=== PATIENT | female | born 1985 | race Caucasian/White ===

== ENCOUNTER 2017-07-28 12:19 | Emergency (ER) | payer BC ==
--- NOTE | 2017-07-28 12:27 | ED ---
Skin Complaint - HPI Summary HPI Summary: 32 YEAR OLD FEMALE PRESENTS WITH MULTIPLE CAT BITES AND SCRATCHES ON BOTH ARMS. - History of Current Complaint Time Seen by Provider: 07/28/17 12:27 Stated Complaint: BILATERAL HAND/ARM CAT BITE/SCRATCH Hx Obtained From: Patient Hx Last Menstrual Period: 09/06/14 Onset/Duration: Started Hours Ago Skin Exposure Onset/Duration: Hours Ago Timing: Constant Onset Severity: Moderate - Allergy/Home Medications Allergies/Adverse Reactions: Allergies Allergy/AdvReac Type Severity Reaction Status Date / Time Sertraline [From Zoloft] Allergy Severe Rash Verified 07/28/17 12:28 Sulfa Drugs Allergy Severe Rash Verified 07/28/17 12:28 PMH/Surg Hx/FS Hx/Imm Hx Endocrine/Hematology History: Denies: Hx Anticoagulant Therapy, Hx Diabetes, Hx Thyroid Disease Cardiovascular History: Denies: Hx Hypertension, Hx Pacemaker/ICD Respiratory History: Denies: Hx Asthma, Hx Chronic Obstructive Pulmonary Disease (COPD) GI History: Reports: Hx Ulcer, Other GI Disorders - Hx of ulcers 2002, treated medically, resolved History: Denies: Hx Renal Disease Sensory History: Denies: Hx Hearing Aid Neurological History: Reports: Other Neuro Impairments/Disorders - Hx of sciatica Denies: Hx Dementia, Hx Seizures Psychiatric History: Reports: Hx Panic Disorder - Not r/t MRI, pt has had MRI without difficulty Denies: Hx Substance Abuse - Surgical History Surgery Procedure, Year, and Place: L knee laparoscopic surgery 2004, navel surgery 1982 Infectious Disease History: Denies: Hx Clostridium Difficile, Hx Hepatitis, Hx Human Immunodeficiency Virus (HIV), Hx of Known/Suspected MRSA, Hx Shingles, Hx Tuberculosis, Hx Known/ Suspected VRE, Hx Known/Suspected VRSA, History Other Infectious Disease - Social History Alcohol Use: None Substance Use Type: Reports: None Smoking Status (MU): Never Smoked Tobacco Have You Smoked in the Last Year: No Review of Systems Constitutional: Negative Eyes: Negative ENT: Negative Cardiovascular: Negative Respiratory: Negative Gastrointestinal: Negative Genitourinary: Negative Musculoskeletal: Negative Positive: Other - CAT SCRATCH/BITES ON BOTH ARMS All Other Systems Reviewed And Are Negative: Yes Physical Exam Triage Information Reviewed: Yes Vital Signs Reviewed: Yes Skin: Positive: Other - CAT SCRATCH/BITE ON BOTH ARMS Head/Face: Positive: Normal Head/Face Inspection Eyes: Positive: Normal ENT: Positive: Normal ENT inspection Dental: Positive: Percussion Tenderness @ Neck: Positive: Supple Respiratory/Lung Sounds: Positive: Clear to Auscultation Cardiovascular: Positive: Normal Abdomen Description: Positive: Nontender Bowel Sounds: Positive: Present Course/Dx - Diagnoses Provider Diagnoses: Cat scratch of forearm, Cat bite involving extremity Discharge - Discharge Plan Condition: Stable Disposition: HOME Prescriptions: Amoxicillin/Clavulanate TAB* [Augmentin TAB 875*] 875 mg PO BID #20 tab Patient Education Materials: Animal Bite (ED) Referrals: Jimenez Foreman MD [Medical Doctor] -
[2017-07-28 12:28] VITALS: BP 125/72
[2017-07-28] MEDS ORDERED: Tetan/Diph/Pertus SYR(Tdap)* 0.5 ML SYR(BOOSTRIX) use SYR IM ONE (12:33)
== END 2017-07-28 12:59 | disposition home or self-care (01) ==
LOC: UCCORT 12:19
DX: S50.811A Abrasion of right forearm, initial encounter (principal); W45.8XXA Other foreign body or object entering through skin, initial encounter; Y93.9 Activity, unspecified; Y92.9 Unspecified place or not applicable; Y99.9 Unspecified external cause status
CPT/HCPCS: 90471; 90715; 99212; G0463

== ENCOUNTER 2017-09-17 07:46 | Emergency (ER) | payer BC ==
[2017-09-17 07:59] VITALS: BP 109/48
--- NOTE | 2017-09-17 08:48 | UC ---
Rohit Galan Angela, scribed for Gerri Wilhelm MD on 09/17/17 at 0842 . General HPI - HPI Summary HPI Summary: This pt is a 32 y/o female accompanied by her presenting to [facility] c/o cough x4 days. Pt reports that this morning she coughed up blood streaks today. 2 days ago (on Monday) and yesterday (Monday) night, pt had fever and chills. Pt has had normal PO intake. She denies nausea, vomiting, epistaxis. No recent trauma. Pt took cold medicine 2 days ago, last time she took it was last night. She notes she had a sick contact, her son, who was sick a few weeks ago. no cp, sob. Occasional wheeze. No asthma. No tobacco. Pt currently takes Gabapentin and multivitamins. LMP: 3 weeks ago. She denies probability of . Patients medication reviewed this visit. - History of Current Complaint Chief Complaint: UCRespiratory Stated Complaint: COUGH Time Seen by Provider: 09/17/17 08:36 Hx Obtained From: Patient Hx Last Menstrual Period: 08/23/17 Onset/Duration: Lasting Days, Still Present Timing: Constant Alleviating: OTC medicine Associated Signs & Symptoms: Positive: Cough, Fever - and chills, Other - NEG: epistaxis. Negative: Nausea, Vomiting - Allergy/Home Medications Allergies/Adverse Reactions: Allergies Allergy/AdvReac Type Severity Reaction Status Date / Time Sertraline [From Zoloft] Allergy Severe Rash Verified 09/17/17 07:55 Sulfa Drugs Allergy Severe Rash Verified 09/17/17 07:55 Acetaminophen [From Tylenol] Allergy none Verified 09/17/17 07:59 Ibuprofen [From Motrin] Allergy none Verified 09/17/17 08:00 PMH/Surg Hx/FS Hx/Imm Hx Previously Healthy: Yes Other Endocrine History: DENIES: diabetes Other Cardiovascular History: DENIES: HTN Neurological History: Other - sciatica Other Neurological History: sciatic Other History Of: Negative For: Anticoagulant Therapy - Surgical History Surgical History: Yes Surgery Procedure, Year, and Place: L knee laparoscopic surgery 2004, navel surgery 1982 - Family History Known Family History: Positive: Diabetes - maternal grandparents, Other - [place] - Social History Occupation: Works From/At Home Lives: With Family Alcohol Use: None Substance Use Type: None Smoking Status (MU): Never Smoked Tobacco Have You Smoked in the Last Year: No - Immunization History Most Recent Influenza Vaccination: no 2017 Most Recent Tetanus Shot: unknown Review of Systems Constitutional: Fever, Chills Skin: Negative Eyes: Negative ENT: Negative Respiratory: Cough, Other - NEG: SOB Cardiovascular: Negative Gastrointestinal: Negative Genitourinary: Negative Motor: Negative Neurovascular: Negative Musculoskeletal: Negative Neurological: Negative Psychological: Negative Is Patient Immunocompromised?: No All Other Systems Reviewed And Are Negative: Yes Physical Exam Triage Information Reviewed: Yes Appearance: Well-Appearing, No Pain Distress, Well-Nourished Vital Signs: Initial Vital Signs Temp 98 F 09/17/17 07:56 Pulse 111 09/17/17 07:56 Resp 20 09/17/17 07:56 BP 109/48 09/17/17 07:56 Pulse Ox 100 09/17/17 07:56 Vital Signs Reviewed: Yes Eye Exam: Normal Eyes: Positive: Conjunctiva Clear ENT Exam: Normal ENT: Positive: Normal ENT inspection, Hearing grossly normal, Pharynx normal, Nasal congestion, TMs normal, Other - + PND Dental Exam: Normal Neck exam: Normal Neck: Positive: Supple, Nontender, No Lymphadenopathy Respiratory Exam: Normal Respiratory: Positive: Chest non-tender, Lungs clear, Normal breath sounds, Other: - + BS throughout scattered wheeze no accesory muscle use + BS throughout speaking full, easy sentences. no retractions Cardiovascular Exam: Normal Cardiovascular: Positive: RRR, No Murmur, Pulses Normal Abdominal Exam: Normal Abdomen Description: Positive: Nontender, No Organomegaly, Soft Bowel Sounds: Positive: Present Musculoskeletal Exam: Normal Musculoskeletal: Positive: Strength Intact Neurological Exam: Normal Neurological: Positive: Alert Psychological Exam: Normal Skin Exam: Normal Course/Dx - Course Course Of Treatment: Pt with progressive, productive cough + blood streak sputum pt with PND and congestion on exam. tactile temp. abx. flonase. hydrate. secretion precaution. diflucan - gets yeast infection with abx - Differential Dx - Multi-Symptom Provider Diagnoses: bronchitis Discharge - Discharge Plan Condition: Stable Disposition: HOME Prescriptions: Amoxicillin PO (*) [Amoxicillin 875 MG (*)] 875 mg PO BID #20 tab Fluconazole [Diflucan 150 MG (NF)] 150 mg PO ONCE #1 tab Fluticasone NASAL SPRAY 50MCG* [Flonase NASAL SPRAY 50MCG*] 2 spray BOTH NARES DAILY #1 btl Patient Education Materials: Acute Bronchitis (ED) Referrals: Kimberly Ferreira MD [Primary Care Provider] - Additional Instructions: - Stay well hydrated. Drink plenty of non-alcoholic, non-caffinated beverages. - After you have been on antibiotics for 2 days - change your toothbrush and your pillowcase. These infections are spread by secretions - do NOT share eating or drinking utensils - clean items you share with other people such as cell phones, computer mouse, TV remote, computer tablets, etc - Alternate ibuprofen (Advil, Motrin) 600mg and Tylenol every 3 hours for pain or fever. Take with food. Do NOT take for more than 4-5 days. - use nasal spray once a day - Okay to take over the counter cough medication such as Robitussin. Okay to take decongestant - Contact your doctor or return with questions or concerns. You have been given a prescription for diflucan - okay to use if you develop a yeast infection from the antibiotics The documentation as recorded by the Rohit fried Angela accurately reflects the service I personally performed and the decisions made by , Gerri Wilhelm MD.
== END 2017-09-17 08:57 | disposition home or self-care (01) ==
LOC: UCEAST 07:46
DX: J40 Bronchitis, not specified as acute or chronic (principal)
CPT/HCPCS: 99212; G0463

== ENCOUNTER 2018-03-31 16:23 | Emergency (ER) | payer BC ==
[2018-03-31 16:38] VITALS: BP 114/73
--- NOTE | 2018-03-31 17:26 | RAD ---
Indication: Crush injury LEFT great toe. Pain. Comparison: No relevant prior exams available on the [facility] PACS. Technique: AP, lateral, and oblique views LEFT foot. Report: Normal articular alignment. No cortical disruption or suspicious trabecular irregularity to suggest fracture. Unremarkable soft tissue contours. IMPRESSION: Negative exam.
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
== END 2018-03-31 17:55 | disposition home or self-care (01) ==
LOC: UCEAST 16:23
DX: S90.212A Contusion of left great toe with damage to nail, initial encounter (principal); V98.8XXA Other specified transport accidents, initial encounter; Y93.89 Activity, other specified; Y92.9 Unspecified place or not applicable; Z88.6 Allergy status to analgesic agent; Z88.2 Allergy status to sulfonamides; Z88.8 Allergy status to other drugs, medicaments and biological substances; Z83.3 Family history of diabetes mellitus; Z80.0 Family history of malignant neoplasm of digestive organs
CPT/HCPCS: 99212; G0463

== ENCOUNTER 2019-07-27 12:07 | Emergency (ER) | payer BC, MEDICAID ==
--- OUTSIDE RECORDS SUMMARY | 2019-07-27 12:14 | XMS REPORT | Summary of Care ---
:1985 Author Organization [facility] Address [address] [address] Care Team Providers Name Role Phone Kimberly Ferreira MD Primary Care Provider Reason for Visit Reason Comments Physical Encounter Details Date Type Department Care Team Description 07/05/2019 Office Visit [place] [facility] Kimberly Ferreira MD Routine general medical examination at a health care facility (Primary Dx); Medicine [facility] Encounter for screening for malignant neoplasm of breast; [address] [place] [address] Encounter for gynecological examination; [place] [address] Need for Tdap vaccination; [phone] Tachycardia (Fax) Allergies Active Allergy Reactions Severity Noted Date Comments Nsaids Other 12/28/2016 Liver function tests Elevation Sulfa Antibiotics Rash 10/26/2009 Zoloft Rash 10/26/2009 documented as of this encounter (statuses as of 07/05/2019) Medications Medication Sig Dispensed Refills Start Date End Date Status Multiple Take 1 Tab by 0 Active Vitamins-Minerals mouth DAILY. (MULTIVITAMIN GUMMIES ADULTS) Oral Chew Tab OMEGA 3 1000 MG Oral Take by 0 Active Cap mouth. cyclobenzaprine Take 1 Tab by 90 Tab 1 01/15/2019 Active (FLEXERIL) 10 MG Oral mouth THREE TabIndications: TIMES DAILY Chronic midline low NEEDED back pain, with (back pain). 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 at this time by patient agreement - Trochanteric bursitis of both hips 04/05/2017 Chronic low back pain 03/27/2017 Elevated LFTs 09/11/2015 Overview: Since age 11 - Had liver biopsy with Dr Wren- Nothing was found - Has been on ibuprofen for many years - Grandfather and great uncle - Had liver cancer - ( ETOH related) BMI 33.0-33.9,adult 04/02/2015 Sprain of sacrum 11/08/2013 Headache syndromes Overweight(278.02) Chronic back pain documented as of this encounter (statuses as of 07/05/2019) Resolved Problems Problem Noted Date Resolved Date Type 2 diabetes mellitus without complication 08/24/2015 04/05/2018 Overview: Diagnosis 08/06 - care plan done 02/11/2016 documented as of this encounter (statuses as of 07/05/2019) Immunizations Name Administration Dates Next Due TDAP Vaccine 07/05/2019 documented as of this encounter Social History Tobacco Use Types Packs/Day Years Used Date Never Smoker Smokeless Tobacco: Never Used Alcohol Use Drinks/Week oz/Week Comments No 0 Standard drinks or equivalent 0.0 Sex Assigned at Date Recorded Not on file Job Start Date Occupation Industry Not on file Not on file Not on file Travel History Travel Start Travel End No recent travel history available. documented as of this encounter Last Filed Vital Signs Vital Sign Reading Time Taken Comments Blood Pressure 100/62 07/05/2019 1:15 PM EDT Pulse 106 07/05/2019 1:15 PM EDT Temperature 37.3 07/05/2019 1:15 PM EDT C (99.2 F) Respiratory Rate - - Oxygen Saturation 98% 07/05/2019 1:15 PM EDT Inhaled Oxygen Concentration - - Weight 68 kg (150 lb) 07/05/2019 1:15 PM EDT Height 167.6 cm (5' 6") 07/05/2019 1:15 PM EDT Body Mass Index 24.21 07/05/2019 1:15 PM EDT documented in this encounter Progress Notes Kimberly Ferreira MD - 07/05/2019 1:20 PM EDT PATIENT: Susu Fernandez DATE: 07/05/2019 Susu Fernandez is a 34-y.o. female presents for routine physical exam and Also , she has additionalcomplaints of - 1. Feeling pressure in the sinus - 2. Getting 45 day cycle - 3. review of blood work - 4. Recent Holter done for high HR - ordered - Significant for 35% sinus tach 5. Tetanus shot - discussed Patient Active Problem List Diagnosis Headache syndromes Overweight(278.02) Chronic back pain Sprain of sacrum BMI 33.0-33.9,adult Elevated LFTs Chronic low back pain Trochanteric bursitis of both hips Tachycardia Exercize yes No NELSON. No cardiopulmonary symptoms as dyspnea, cough. palpitations , or chest pain on exertion. No upper or lower GI complaints as heartburn, abdominal pain, change in bowel habits, blackor bloody stools. No urinary tract symptoms or incontinence. No symptoms as nocturia, discharge No bruising/ bleeding. No neurological complaints as dysphagia, imbalance, vertigo , focal weakness. No insomnia.+ Rested after nights sleep. No depression. Does not stop breathing at night. Current Outpatient Medications Medication Sig cyclobenzaprine (FLEXERIL) 10 MG Oral Tab Take 1 Tab by mouth THREE TIMES DAILY NEEDED (back pain). gabapentin (NEURONTIN) 300 MG Oral Cap take 1 capsule by mouth three times a day Multiple Vitamins-Minerals (MULTIVITAMIN GUMMIES ADULTS) Oral Chew Tab Take 1 Tab by mouth DAILY. OMEGA 3 1000 MG Oral Cap Take by mouth. No current facility-administered medications for this visit. Social History Socioeconomic History Marital status: Spouse name: Not on file Number of children: Not on file Years of education: Not on file Highest education level: Not on file Occupational History Not on file Social Needs Financial resource strain: Not on file Food insecurity: Worry: Not on file Inability: Not on file Transportation needs: Medical: Not on file Non-medical: Not on file Tobacco Use Smoking status: Never Smoker Smokeless tobacco: Never Used Substance and Sexual Activity Alcohol use: No Alcohol/week: 0.0 standard drinks Drug use: No Sexual activity: Yes Partners: Male Lifestyle Physical activity: Days per week: Not on file Minutes per session: Not on file Stress: Not on file Relationships Social connections: Talks on phone: Not on file Gets together: Not on file Attends orthodox service: Not on file Active member of club or organization: Not on file Attends meetings of clubs or organizations: Not on file Relationship status: Not on file Intimate partner violence: Fear of current or ex partner: Not on file Emotionally abused: Not on file Physically abused: Not on file Forced sexual activity: Not on file Other Topics Concern Back Care Not Asked Bike Helmet Not Asked Blood Transfusions Not Asked Caffeine Concern Not Asked Exercise Not Asked Hobby Hazards Not Asked International Travel Not Asked Service Not Asked Occupational Exposure Not Asked Seat Belt Not Asked Self-Exams Not Asked Sleep Concern No Special Diet No Stress Concern No Weight Concern Yes Comment: max weight 230 prior to Social History Narrative 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 Lives with sons, mother in [place]. From [place], [place] originally. Family History Problem Relation Age of Onset Allergies Mother environmental Arthritis Mother GI Father ulcer Blood Disease Brother unsure what kind of blood disease Diabetes Maternal Grandfather Diabetes Maternal Grandmother Lab Results Component Value Date NA 135 05/28/2019 K 4.2 05/28/2019 CL 97 (L) 05/28/2019 CO2 32 (H) 05/28/2019 GLUCOSE 107 (H) 05/28/2019 BUN 17 05/28/2019 CREATININE 0.6 (L) 05/28/2019 CALCIUM 9.6 05/28/2019 TP 8.2 04/05/2018 ALBUMIN 4.7 04/05/2018 AST 26 04/05/2018 ALT 21 04/05/2018 ALK 59 04/05/2018 TBILI 0.7 04/05/2018 EGFR >60 05/28/2019 Lab Results Component Value Date WBC 8.86 05/28/2019 HGB 13.1 05/28/2019 HCT 40.8 05/28/2019 PLAT 300 05/28/2019 OBJECTIVE: BP 100/62 (BP Location: Right arm, Patient Position: Sitting) | Pulse 106 | Temp 99.2 F (37.3 C) | Ht 5' 6" (1.676 m) | Wt 150 lb (68 kg) | SpO2 98% | BMI 24.21 kg/m Gen well Heent: ears TM and canals normal eyes Perrl; EOMI oroph-wnl Neck- no JVD,thyromegaly, bruit or lymphademopathy No supraclavicular, axillary or inguinal lymphadenopathy Lungs-clear to auscultation CV RRR no Murmur, gallop or clilck Breasts-no masses or diimpling (examined supine and sitting) Abd. 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 Routine general medical examination at a health care facility V70.0 Z00.00 2. Encounter for screening for malignant neoplasm of breast V76.10 Z12.31 3. Encounter for gynecological examination Z01.419 4. Need for Tdap vaccination V06.1 Z23 5. 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 Author: Kimberly Ferreira MD documented in this encounter Plan of Treatment Health Maintenance Due Date Last Done Comments PAP SMEAR 05/07/2017 05/07/2014, 04/22/2009 INFLUENZA VACCINE (#1) 2019 DEPRESSION SCREENING 05/28/2020 05/28/2019 HPV IMMUNIZATION SERIES Aged Out No longer eligible based on patient's age to complete this topic MENINGOCOCCAL VACCINE IMM Aged Out No longer eligible based on patient's age to complete this topic PNEUMOCOCCAL 0-64 YRS Aged Out No longer eligible based on patient's age to complete this topic documented as of this encounter Goals Goal Patient Goal Associated Recent Patient-Stated? Author Type Problems Progress Diabetes < 7.0 Diabetes Type 2 diabetes 5.5 No Hanna, mellitus without (04/05/2018 MD Kimberly complication 11:23 AM EDT) Note: Diabetes Care Plan According to current 2014 ADA guidelines the patient A1C goal is less than 7. The patient's last A1C was Lab Results Component Value Date GLYCOHEMOGLOBIN A1C 5.8 12/22/2015 The patient is:at goal . As your provider, it is important that I advise you regarding: your current medications and help you with any challenges you may face taking your medications as directed (ex. instructions, cost, side effects, and interactions). Important lifestyle changes:exercise and diet your clinical goals and how you can achieve success:weight reduction, exercise plan and diet management medication management: N/A diet only patient education/self-management tools provided: Yes To successfully manage my Diabetes I will: have lab work every six months if my previous A1c was 7 or less. If my results were greater than 7, I will have lab work every three months. My goal is to control my diabetes by keeping A1c below 7.0 take medications every day as prescribed by my healthcare provider and if unable to take them I will discuss with my provider. exercise/walk 30 minutes 4 day(s) per week. If I experience chest pain, chest tightness, or shortness of breath, I will seek medical attention immediately. check feet daily. If sores or irritation are noticed, will seek medical attention. follow a low carbohydrate and low fat diet. My goal is an LDL (bad cholesterol) number less than 100 when I have my routine lab work. check blood sugar as instructed and will call my healthcare provider if the results are consistently below 70 or above 300. I will monitor for symptoms of low blood sugar (feeling faint, dizzy, lig htheaded, jittery, sweaty, or hungry), if symptoms are noticed, I will eat or drink something (glucose tabs, orange juice, candy) to help raise sugar. record my blood sugar results (including dextrose sticks). [employer] is safe and secure way for you to do this in your medical record online. try to obtain an ideal body weight. My recent weight was Weight: 166 lb ( 75.297 kg). My weight loss goal for my next office visit is keep the weight - . to prevent kidney problems common to people with diabetes I will complete a yearly Microalbumin to check for protein in urine. I will talk with my healthcare provider about medications to prevent diabetic renal disease. to prevent diabetic retinopathy I will see an eye doctor yearly. A yearly dilated eye exam helps prevent blindness. if currently smoking, will discuss how to quit smoking with my healthcare provider and work towards quitting. Glycohemoglobin A1c < 7.0 Diabetes 5.5 (04/05/2018 11:23 AM Kimberly Casillas MD EDT) Note: This is an individualized treatment (diabetes control, HgbA1C) goal for Susu Fernandez: Displayed above is your progress towards your HgbA1C goal. Your goal is shown above (on the left); your most recent HgbA1C is shown on the right. Note that lower numbers are better. Keep immunizations current Lifestyle No Kimberly Ferreira MD Note: This is an individualized lifestyle goal for Susu Fernandez: Please be sure to keep up-to-date on recommended immunizations. For example, this would include a yearly influenza vaccine. Immunization status can be seen by looking at the Health Maintenance sections of your [facility], Plan of Care, and any After Visit Summaries. Take all prescribed medications as directed Self-management No Kimberly Ferreira MD Note: This is an individualized self-management goal for Susu Fernandez: Please take all prescribed medications as directed. 1. Do not skip doses. If you cannot afford your medications, talk with your doctor. 2. Use a pill reminder system such as a pill box if needed. Your pharmacist can help you with this. 3. Contact your Pharmacy 5 days before your medication runs out. If you cannot take your medications for any reasons, talk with your doctor. 4. Please bring all of your medication bottles and inhalers (or a list of all your medications/inhalers) with you to every visit. Potential barriers to meeting all of your care plan goals will continue to be addressed on an ongoing basis. documented as of this encounter Results Not on filedocumented in this encounter Visit Diagnoses Diagnosis Routine general medical examination at a health care facility - Primary Encounter for screening for malignant neoplasm of breast Encounter for gynecological examination Need for Tdap vaccination Need for prophylactic vaccination with combined lckbupcpee-ztunjxb-lehqbntst ( DTP) vaccine Tachycardia Tachycardia, unspecified documented in this encounter Insurance Payer Benefit Plan / Subscriber ID Effective Dates Phone Address Type Group BCBS NATIONAL BCBS NATIONAL xxxxxxxxxxxx 2011-Present Blue Cross/Blue Shield Guarantor Name Account Type Relation to Date of Phone Billing Patient Address Susu Fernandez Personal/Family 1985 [address] [phone] [place], [place] (Work) [id number] documented as of this encounter
--- OUTSIDE RECORDS SUMMARY | 2019-07-27 12:14 | XMS REPORT | Summary of Care ---
:1985 Author Organization [facility] Address [address] [facility] [place] [address] Care Team Providers Name Role Phone Kimberly Ferreira MD Primary Care Provider Reason for Visit Reason Comments Blood Pressure has low BP Dr ferreira per pt staed if it doesnt get better she was going to have pt see a cardio Encounter Details Date Type Department Care Team Description 05/28/2019 Office Visit [facility] Anushka Chaudhry, Hypotension, Practice [employer] unspecified [address] [facility] [place] [address] [place] [address] (Primary Dx) [phone] Allergies Active Allergy Reactions Severity Noted Date Comments Nsaids Other 12/28/2016 Liver function tests Elevation Sulfa Antibiotics Rash 10/26/2009 Zoloft Rash 10/26/2009 documented as of this encounter (statuses as of 2019) Medications Medication Sig Dispensed Refills Start Date End Date Status Multiple Take 1 Tab by 0 Active Vitamins-Minerals mouth DAILY. (MULTIVITAMIN GUMMIES ADULTS) Oral Chew Tab OMEGA 3 1000 MG Oral Take by mouth. 0 Active Cap Omeprazole delayed rel take 1 capsule by 90 Cap 3 02/27/2017 Active cap 20 MG Oral CAPSULE mouth once daily DELAYED RELEASE Additional information Patient taking differently: take 1 capsule by mouth once daily prn, Reported on 01/15/2019 11:08 AM cyclobenzaprine Take 1 Tab by 90 Tab 1 01/15/2019 Active (FLEXERIL) 10 MG Oral mouth THREE TIMES TabIndications: Chronic DAILY NEEDED midline low back pain, (back pain). with sciatica presence unspecified gabapentin (NEURONTIN) take 1 capsule by 180 Cap 1 02/12/2019 Active 300 MG Oral Cap mouth three times a day clobetasol (CORMAX) 0.05 Apply to hands 30 g 1 12/28/2016 Discontinued % Apply externally sparingly - 1-2 x 9 OintmentIndications: daily Eczema, unspecified type triamcinolone Apply to rash 80 g 0 01/15/2019 Discontinued (KENALOG,ARISTOCORT) 0.1 twice a day for up 9 % Apply externally to 2 weeks CreamIndications: Atopic dermatitis, unspecified type documented as of this encounter (statuses as of 2019) Active Problems Problem Noted Date Trochanteric bursitis of both hips 04/05/2017 Chronic [...] as of this encounter (statuses as of 2019) Resolved Problems Problem Noted Date Resolved Date Type 2 diabetes mellitus without complication 08/24/2015 04/05/2018 Overview: Diagnosis 08/06 - care plan done 02/11/2016 documented as of this encounter (statuses as of 2019) Social History Tobacco Use Types Packs/Day Years [...] Sign Reading Time Taken Comments Blood Pressure 102/58 05/28/2019 3:31 PM EDT Pulse 116 05/28/2019 3:31 PM EDT Temperature 36.3 05/28/2019 3:31 PM EDT C (97.4 F) Respiratory Rate - - Oxygen Saturation 100% 05/28/2019 3:31 PM EDT Inhaled Oxygen Concentration - - Weight 67.2 kg (148 lb 3.2 oz) 05/28/2019 3:31 PM EDT Height - - Body Mass Index 23.92 05/21/2019 3:35 PM EDT documented in this encounter Patient Instructions Patient InstructionsAnushka Chaudhry FNP - 05/28/2019 3:40 PM EDTLabs today Schedule Holter monitor Salt may help documented in this encounter Progress Notes Anushka Chaudhry FNP - 05/28/2019 3:40 PM EDT PATIENT: Susu Fernandez : 1985 DATE OF SERVICE: 05/28/2019 CHIEF COMPLAINT: Chief Complaint Patient presents with Blood Pressure has low BP Dr ferreira per pt staed if it doesnt get better she was going to have pt see a cardio Subjective HISTORY OF PRESENT ILLNESS: Susu Fernandez is a 33-y.o. female. HPI Ongoing low BP - dizziness if stands up fast Past Medical History: Diagnosis Date Chronic back pain H/O gestational diabetes mellitus, not currently on insulin therapy during first Headache syndromes Overweight(278.02) Family History Problem Relation Age of Onset Allergies Mother environmental Arthritis Mother GI Father ulcer Blood Disease Brother unsure what kind of blood disease Diabetes Maternal Grandfather Diabetes Maternal Grandmother Current Outpatient Medications Medication Sig cyclobenzaprine (FLEXERIL) 10 MG Oral Tab Take 1 Tab by mouth THREE TIMES DAILY NEEDED (back pain). gabapentin (NEURONTIN) 300 MG Oral Cap take 1 capsule by mouth three times a day Multiple Vitamins-Minerals (MULTIVITAMIN GUMMIES ADULTS) Oral Chew Tab Take 1 Tab by mouth DAILY. OMEGA 3 1000 MG Oral Cap Take by mouth. Omeprazole delayed rel cap 20 MG Oral CAPSULE DELAYED RELEASE take 1 capsule by mouth once daily (Patient taking differently: take 1 capsule by mouth once daily prn) No current facility-administered medications for this visit. Allergies Allergen Reactions Nsaids Other Liver function tests Elevation Sulfa Antibiotics Rash Zoloft Rash Social History Socioeconomic History Marital status: Spouse [...] file Gets together: Not on file Attends yarsanism service: Not on file Active member of [...] 2 children. Lives with sons, mother in [place]. From [place], [place] originally. Over the last 2 weeks, have you been feeling down, depressed, anxious, or hopeless?: 1 Over the past 2 weeks, have you felt little interest or pleasure in doing things ?: 1 REVIEW OF SYSTEMS: Review of Systems Constitutional: Positive for malaise/fatigue. Negative for chills and fever. Respiratory: Negative for shortness of breath. Cardiovascular: Positive for palpitations. Negative for chest pain. Neurological: Positive for dizziness. Negative for sensory change, loss of consciousness and headaches. Objective PHYSICAL EXAM: VITALS: BP 102/58 (BP Location: Right arm, Patient Position: Sitting) | Pulse (!) 116 | Temp 97.4F (36.3 C) | Wt 148 lb 3.2 oz (67.2 kg) | SpO2 100 % | BMI 23.92 kg/m Body mass indexis 23.92 kg/m. Physical Exam Constitutional: She is oriented to person, place, and time. Vital signs are normal. She appears well-developed and well-nourished. HENT: Head: Normocephalic and atraumatic. Eyes: Pupils are equal, round, and reactive to light. Neck: Normal range of motion. No JVD present. Cardiovascular: Normal rate and regular rhythm. HR >110 Pulmonary/Chest: Effort normal and breath sounds normal. Lymphadenopathy: She has no cervical adenopathy. Neurological: She is alert and oriented to person, place, and time. Skin: Skin is warm and dry. Capillary refill takes less than 2 seconds. No rash noted. No cyanosis or erythema. No pallor. Vitals reviewed. ASSESSMENT / IMPRESSION: ICD-9-CM ICD-10-CM 1. Hypotension, unspecified hypotension type 458.9 I95.9 THYROID STIMULATING HORMONE CBC WITH DIFFERENTIAL BASIC METABOLIC PANEL HOLTER MONITOR, GLOBAL (INCLUDES INSULATION AND FLOORING ASSEMBLER, VISUAL SCAN & INTERP) VITAMIN B12 / FOLATE VITAMIN B12 / FOLATE BASIC METABOLIC PANEL CBC WITH DIFFERENTIAL THYROID STIMULATING HORMONE Plan Labs today Schedule Holter monitor Salt may help Author: CUCA Adhikari 05/28/2019 16:05 documented in this encounter Plan of Treatment Date Type Specialty Care Team Description 06/10/2019 Nurse/Clinical Support Internal Medicine Name Type Priority Associated Diagnoses Order Schedule HOLTER MONITOR, Procedures Routine Hypotension, unspecified Ordered: 2018 GLOBAL (INCLUDES hypotension type INSULATION AND FLOORING ASSEMBLER, VISUAL SCAN & INTERP) Health Maintenance Due Date Last Done Comments [...] 7.0 Diabetes Type 2 diabetes 5.5 No Crepet, mellitus without (04/05/2018 MD Kimberly complication 11:23 [...] my blood sugar results (including dextrose sticks). [address] is safe and secure way for you [...] < 7.0 Diabetes 5.5 (04/05/2018 11:23 AM No Kimberly Ferreira MD EDT) Note: This is an individualized [...] Take all prescribed medications as directed Self-management Kimberly Casillas MD Note: This is an individualized self-management [...] ongoing basis. documented as of this encounter Procedures Procedure Name Priority Date/Time Associated Diagnosis Comments CBC WITH DIFFERENTIAL Routine 05/28/2019 4:08 Hypotension, Results for this PM EDT unspecified procedure are in hypotension type the results section. VITAMIN B12 / FOLATE Routine 05/28/2019 4:08 Hypotension, Results for this PM EDT unspecified procedure are in hypotension type the results section. THYROID STIMULATING Routine 05/28/2019 4:08 Hypotension, Results for this HORMONE PM EDT unspecified procedure are in hypotension type the results section. BASIC METABOLIC PANEL Routine 05/28/2019 4:08 Hypotension, Results for this PM EDT unspecified procedure are in hypotension type the results section. documented in this encounter Results VITAMIN B12 / FOLATE (05/28/2019 4:08 PM EDT) Vitamin B12 566 239 - 931 pg/ml [facility] Folate >20.0 (H) 2.8 - 20.0 ng/ml [facility] Specimen Blood Performing Organization Address [facility] Phone Number [facility] [address] [place] [id number] BASIC METABOLIC PANEL (05/28/2019 4:08 PM EDT) Glucose 107 (H) 70 - 99 mg/dl [facility] BUN 17 7 - 17 mg/dl [facility] Creatinine 0.6 (L) 0.7 - 1.2 mg/dl [facility] Sodium 135 134 - 145 mmol/L [facility] Potassium 4.2 3.5 - 5.1 mmol/L [facility] Chloride 97 (L) 98 - 107 mmol/L [facility] CO2 32 (H) 22 - 30 mmol/L [facility] Calcium 9.6 8.3 - 10.1 mg/dl [facility] eGFR >60 See Interpretation [facility] Comment: Below ml/min/1.73ml [facility] Estimated GFR Interpretation: Above 60ml/min/1.73m2 = Normal Renal Function 30-59 ml/min/1.73m2 = Stage 3 Chronic Kidney Disease 15-29 ml/min/1.73m2 = Stage 4 Chronic Kidney Disease Less than 15 ml/min/1.73m2 = Stage 5 Chronic Kidney Disease The GFR value is calculated using the Modification of Diet in Renal Disease ( MDRD) Study Equation which can be found at: https://www.kidney.org/content/efdl-ykayc-xvqygwvj BUN/Creatinine 28 (H) 6 - 22 RATIO [facility] Anion Gap 6 3 - 11 mmol/L [facility] Specimen Blood Performing Organization Address [facility] Phone Number [facility] [address] [place] [id number] CBC WITH DIFFERENTIAL (05/28/2019 4:08 PM EDT) WBC Count 8.86 3.98 - 10.04 K/uL [facility] RBC Count 4.23 3.93 - 5.22 M/UL [facility] Hemoglobin 13.1 11.2 - 15.7 g/dL [facility] Hematocrit 40.8 34.1 - 44.9 % [facility] MCV 96.5 (H) 79.4 - 94.8 FL [facility] MCH 31.0 25.6 - 32.2 PG [facility] MCHC 32.1 (L) 32.2 - 35.5 g/dL [facility] Platelet Count 300 182 - 369 K/uL [facility] MPV 10.5 9.4 - 12.3 FL [facility] RDW 12.8 11.7 - 14.4 % [facility] Neutrophil % 64.4 34.0 - 71.1 % [facility] Lymphocyte % 25.4 19.3 - 51.7 % [facility] Monocyte % 8.6 4.7 - 12.5 % [facility] Eosinophil % 0.8 0.7 - 5.8 % [facility] Basophil % 0.6 0.1 - 1.2 % [facility] nRBC % 0.0 0.0 - 0.2 % [facility] Neutrophil # 5.71 1.56 - 6.13 K/UL [facility] Lymphocyte # 2.25 1.18 - 3.74 K/UL [facility] Monocyte # 0.76 0.24 - 0.86 K/UL [facility] Eosinophil # 0.07 0.04 - 0.36 K/UL [facility] Basophil # 0.05 0.01 - 0.08 K/UL [facility] Immature Gran % 0.2 0.0 - 0.4 % [facility] Immature Gran # 0.02 0.00 - 0.03 K/uL [facility] NRBC # 0.00 0.00 - 0.12 K/uL [facility] Specimen Blood Performing Organization Address City/State/Zipcode Phone Number [facility] [address] [facility] [place] [address] THYROID STIMULATING HORMONE (05/28/2019 4:08 PM EDT) TSH 1.02 0.47 - 4.68 uIu/ml [facility] Specimen Blood Performing Organization Address City/State/Zipcode Phone Number [facility] [address] [place] [address] [phone] documented in this encounter Visit Diagnoses Diagnosis Hypotension, unspecified hypotension type - Primary documented in this encounter Insurance Payer Benefit Plan / Subscriber ID Effective Dates Phone Address Type Group [facility] xxxxxxxxxxxx 2011-Present Blue Cross/Blue Shield Guarantor Name Account Type Relation to Date of Phone Billing Patient Address Susu Fernandez Personal/Family 1985 [address] [phone] [place], [place] (Work) [id number] documented as of this encounter"
--- NOTE | 2019-07-27 12:36 | UC ---
Palpitation/Dysrhythmia HP - HPI Summary HPI Summary: CHIEF COMPLAINT and HPI: This is a 34-year-old female complaining of pounding heart and dizziness. This condition began approximately one hour prior to coming into the urgent care center. She denies chest pain but does say that she has a small area of discomfort between her shoulder blades. She denies shortness of breath. She states that she gets dizzy when she stands. Patient has been diagnosed with tachycardia over the last 2 years. She has been examined and worked up by [facility] and told that this is a hereditary condition. Her heart rate normally runs between 99 and 110 and intermittently it gets faster. Today, she states that her heart rate was higher than ever before. In the urgent care. Immediate orthostatics showed a consistent blood pressure in approximately the 120-80 range but a pulse that varied from 116, supine to 129, sitting 146standing. She does experience orthostasis when she stands and this condition is relieved by flexing and straightening her knees. She denies room spinning. Note is made of previous visits including 09/17/17 when her blood pressure was 109/48 and her pulse was 111. On 03/31/18 Her blood pressure was 114/73 and her pulse was 98 The patient is on gabapentin for fibromyalgia and does have a history of peptic disease but denies pain or blood per rectum. She does have some sinus pressure, has had a cold the last 2 weeks. The patient states that when she stands and gets dizzy. This condition goes away usually, after 1 minute. VITAL SIGNS & SaO2 REVIEWED. Within normal limits unless noted here. NURSES NOTE REVIEWED. - History of Current Complaint Chief Complaint: UCGeneralIllness Stated Complaint: HIGH BP, PAIN IN REAR RIBS, DIZZY Time Seen by Provider: 07/27/19 12:16 Hx Last Menstrual Period: 07/08/19 Pain Intensity: 2 - Allergy/Home Medications Allergies/Adverse Reactions: Allergies Allergy/AdvReac Type Severity Reaction Status Date / Time acetaminophen Allergy See Comment Verified 07/27/19 12:18 ibuprofen Allergy See Comment Verified 07/27/19 12:18 sertraline [From Zoloft] Allergy Rash Verified 07/27/19 12:18 Sulfa (Sulfonamide Allergy Rash Verified 07/27/19 12:18 Antibiotics) PMH/Surg Hx/FS Hx/Imm Hx - Additional Past Medical History Additional PMH: PAST MEDICAL HISTORY- CHRONIC and RECURRENT HEALTH PROBLEM LIST REVIEWED. Information relevant to present complaint: workup at [facility] ruled out hyperthyroidism. VISIT HISTORY REVIEWED: patient was told at [facility] that she had an inherited condition MEDICATIONS & ALLERGIES REVIEWED. HYPERTENSION STATUS: no history of hypertension; blood pressure usually runs in the low 100s. FAMILY HISTORY: Tachycardia in the patient's grandmother and aunt. Positive for: cardiovascular disease. cancer. 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 Previously Healthy: Yes Other History Of: Negative For: Anticoagulant Therapy - Surgical History Surgical History: Yes Surgery Procedure, Year, and Place: L knee laparoscopic surgery 2004, navel surgery 1982 - Family History Known Family History: Positive: Diabetes - maternal grandparents, Other - Colon [place] - Social History Alcohol Use: None Substance Use Type: None Smoking Status (MU): Never Smoked Tobacco Have You Smoked in the Last Year: No - Immunization History Most Recent Influenza Vaccination: no 2016 Most Recent Tetanus Shot: unknown Review of Systems All Other Systems Reviewed And Are Negative: Yes Constitutional: Positive: Negative Cardiovascular: Positive: Palpitations, Other - back discomfort Gastrointestinal: Positive: Negative Genitourinary: Positive: Negative Physical Exam - Summary Physical Exam Summary: Appearance: The patient is well-appearing, is in no pain or distress, and is well-nourished. Eyes: Conjunctiva are clear. Pupils are equal and reactive to light and accommodation. Extra ocular muscle movement is intact. ENT: The hearing is grossly normal, the pharynx is normal, and the TMs are normal. There is no muffled or hoarse voice. No stridor. Neck: The neck is supple and there is no lymphadenopathy. Respiratory: The chest is non-tender to palpation and without crepitus. The lungs are clear, there are normal breath sounds, and there is no respiratory distress. No wheezes, rales or rhonchi. Cardiovascular: Heart sounds reveal a regular rate and rhythm. There are no clicks, rubs or murmurs. There are no carotid bruits or thrills. Circulation is grossly intact. Patient is tachycardic and orthostatic with standing. This is mild and is relieved by flexion and extension of the knees. Abdomen: The abdomen is soft and nontender. There is no organomegaly. Bowel sounds are present and within normal limits. No point tenderness at McBurneys point. No CVA tenderness. Musculoskeletal: Strength is intact. The patient moves all extremities. Neurological: The patient is alert. Motor and sensory are examination grossly intact. Speech is normal. Psychological: The patient displays age appropriate behavior, and is conversant. GCS=15. Skin: Negative for rashes. Triage Information Reviewed: Yes Vital Signs: Initial Vital Signs Temp 99.4 F 07/27/19 12:13 Pulse 129 07/27/19 12:13 Resp 19 07/27/19 12:13 BP 132/90 07/27/19 12:13 Pulse Ox 99 07/27/19 12:13 Palpitations Course/Dx - Course Course Of Treatment: This is a 34-year-old female complaining of pounding heart and dizziness. This condition began approximately one hour prior to coming into the urgent care center. She denies chest pain but does say that she has a small area of discomfort between her shoulder blades. She denies shortness of breath. She states that she gets dizzy when she stands. Patient has been diagnosed with tachycardia over the last 2 years. She has been examined and worked up by [facility] and told that this is a hereditary condition. Her heart rate normally runs between 99 and 110 and intermittently it gets faster. Today, she states that her heart rate was higher than ever before. In the urgent care. Immediate orthostatics showed a consistent blood pressure in approximately the 120-80 range but a pulse that varied from 116, supine to 129, sitting 146standing. She does experience orthostasis when she stands and this condition is relieved by flexing and straightening her knees. She denies room spinning. Note is made of previous visits including 09/17/17 when her blood pressure was 109/48 and her pulse was 111. On 03/31/18 Her blood pressure was 114/73 and her pulse was 98 The patient is on gabapentin for fibromyalgia and does have a history of peptic disease but denies pain or blood per rectum. She does have some sinus pressure, has had a cold the last 2 weeks. The patient states that when she stands and gets dizzy. This condition goes away usually, after 1 minute. atient states that she drinks very little and could be dehydrated. Physical examination is remarkable for a heart rate of 120. When the patient stands up. She does not faint or complain of visual disturbances or shortness of breath. She has no complaint of chest pain. Her back discomfort is minimal. When she flexes and extends her knees hurt dizziness decreases and resolves. a plan was made to give her 1 L of fluids with the nurses could not get an IV in. EKG: SINUS 113; NO ISCHEMIA; EARLY R WAVE PROGRESSION. NOTE EK11/30/14: SINUS; RATE 99; r IN v2 NOT C/W EARLY R WAVE PROGRESSION; OTHERWISE, NO SIGNIFICANT DIFFERENCE IN THESE EKGS. XRAY: REPORT: Clear lungs and pleural spaces. Negative for pneumothorax. The heart, pulmonary vasculature, and mediastinal contours are unremarkable. Negative for mediastinal widening. Unremarkable osseous structures and soft tissue contours. IMPRESSION: #. Negative exam. examination at 1330 shows the patient to be lying down and comfortable. Her mild intrascapular back discomfort is slightly increased with palpation. It is nonradiating and it is in a small area. The center of her back in the thoracic region. Radial pulses are equal and within normal limits in both arms. Lying down her pulse was approximately 100. When she sat up, her pulse became approximately 120. Urine was tested for her hydration status. at this time, my diagnosis is chronic, intermittent tachycardia with possible dehydration, today, exacerbating her subjective feeling of palpitations and orthostasis. because a IV could not be placed at the urgent care, and the patient did not wish to go to the emergency department at this time, she will go home, rest and increase her fluid intake. She knows to follow up at [facility] on Monday and to go to the emergency department for any increasing palpitations , dizziness or chest pain or shortness of breath. BP was 127/79 left and 111/ 81 right. SG of urine: 1.025. - Differential Dx/Diagnosis Differential Diagnosis/HQI/PQRI: Coronary Artery Disease, Paroxymal SVT, Pulmonary Embolism, Other - hyperthyroidism Provider Diagnosis: Tachycardia Discharge ED - Sign-Out/Discharge Documenting (check all that apply): Patient Departure All imaging exams completed and their final reports reviewed: Yes - Discharge Plan Condition: Stable Disposition: HOME Patient Education Materials: Tachycardia (ED) Referrals: Kimberly Ferreira MD [Primary Care Provider] - Additional Instructions: WE DISCUSSED: PLEASE SEEK CARE AT THE EMERGENCY DEPARTMENT IF SYMPTOMS WORSEN OR IF NEW SYMPTOMS DEVELOP. FOLLOW UP WITH YOUR PRIMARY CARE PHYSICIAN IF CONDITION CONTINUES BEYOND 3 DAYS WITHOUT IMPROVEMENT. YOUR DIAGNOSIS IS:fast heart rate and dizziness with standing YOUR PRESCRIPTION RECOMMENDATION IS:none OTHER INSTRUCTIONS:. Go home and rest and try to drink as much fluid as possible. Move slowly. Call your doctor on Monday, to be followed up for rapid heartbeat. Go to the emergency department if you have a repeat episode or any chest pain, significant dizziness, or shortness of breath. Hypertension Discharge Instructions: Your blood pressure reading today was 132/90, indicating HYPERTENSION. Follow- up with your primary care provider to recheck on Monday. - Billing Disposition and Condition Condition: STABLE Disposition: Home
[2019-07-27] MEDS ORDERED: NS 0.9% 1000 ML** 1,000 ML BOLUS ONE (13:07)
[2019-07-27 14:06] VITALS: BP 120/84
== END 2019-07-27 13:55 | disposition home or self-care (01) ==
LOC: UCEAST 12:07
DX: R00.0 Tachycardia, unspecified (principal); R42 Dizziness and giddiness; R03.0 Elevated blood-pressure reading, without diagnosis of hypertension; R07.81 Pleurodynia; R29.898 Other symptoms and signs involving the musculoskeletal system; M79.7 Fibromyalgia; Z79.899 Other long term (current) drug therapy; R09.89 Other specified symptoms and signs involving the circulatory and respiratory systems; Z88.8 Allergy status to other drugs, medicaments and biological substances; Z88.2 Allergy status to sulfonamides
CPT/HCPCS: 71046; 81003; 93005; 99212; G0463